=== PATIENT | male | born 1950 | race Caucasian/White ===

== ENCOUNTER 2017-04-19 05:20 | Emergency (ER) | payer MEDICARE ==
--- NOTE | 2017-04-19 05:32 | ED ---
Dizziness HPI - General Source: patient, family Mode of arrival: wheelchair Limitations: no limitations - History of Present Illness MD Complaint: dizziness Onset/Timin -: days(s) Timing: gradual onset Description: "room spinning" History of Same: No History of Trauma: No Severity: moderate Improves With: remaining still Worsens With: position Associated Symptoms: other (Nausea) <Mark Lee - Last Filed: 04/19/17 05:52> <Dale Peralta - Last Filed: 04/19/17 08:22> - General Stated Complaint: DIZZINESS Time Seen by Provider: 04/19/17 05:23 - History of Present Illness Initial Comments: This patient is a 66-year-old man who presents with 2 days of vertiginous symptoms. The patient states that it bothers him mainly when he attempts to sleep. He states that he usually sleeps lying on his stomach and when he tries to roll so that he is lying on his stomach he has an intense feeling of the room spinning. He states it also sometimes comes on when he goes from the prone position to standing. He has had a little bit of associated nausea. He denies other symptoms but on the review of systems notes that he has had approximately 2 weeks of cold like symptoms with little bit of congestion and a bit of a nonproductive cough. (Mark Lee) - Related Data Home Medications Medication Instructions Recorded Confirmed Ascorbic Acid [Vitamin C] 500 mg PO HS 04/19/17 04/19/17 Ergocalciferol [Vitamin D2] 50,000 unit PO DONG 04/19/17 04/19/17 Furosemide [Lasix] 40 mg PO HS 04/19/17 04/19/17 Latanoprost [Xalatan 0.005%] 1 drop BOTH EYES HS 04/19/17 04/19/17 Lisinopril 40 mg PO HS 04/19/17 04/19/17 Losartan Potassium 100 mg PO HS 04/19/17 04/19/17 Omeprazole [PriLOSEC] 20 mg PO AC-BID 04/19/17 04/19/17 Simvastatin [Zocor] 40 mg PO HS 04/19/17 04/19/17 Vitamin E 100 unit PO HS 04/19/17 04/19/17 hydrALAZINE HCL [Apresoline] 100 mg PO TID 04/19/17 04/19/17 Previous Rx's Medication Instructions Recorded Meclizine [Antivert] 25 mg PO TID PRN #30 tab 04/19/17 Allergies Allergy/AdvReac Type Severity Reaction Status Date / Time No Known Allergies Allergy Verified 04/19/17 08:16 Review of Systems ROS Other: All systems not noted in ROS Statement are negative. Constitutional: Denies: fever, chills Eyes: Denies: vision change ENT: Reports: congestion. Denies: ear pain, hearing loss Respiratory: Reports: cough. Denies: dyspnea, wheezes Cardiovascular: Denies: chest pain, palpitations, orthopnea, edema, syncope Gastrointestinal: Reports: nausea. Denies: abdominal pain, vomiting Musculoskeletal: Denies: back pain Skin: Denies: rash Neurological: Reports: vertigo. Denies: headache, weakness, numbness, paresthesias, confusion <JesusMark - Last Filed: 04/19/17 05:52> ROS Other: All systems not noted in ROS Statement are negative. <Dale Peralta - Last Filed: 04/19/17 08:22> ROS Statement: Those systems with pertinent positive or pertinent negative responses have been documented in the HPI. Past Medical History Past Medical History: Heart Failure, GERD/Reflux, Hypertension History of Any Multi-Drug Resistant Organisms: None Reported Past Surgical History: No Surgical Hx Reported, Tonsillectomy Past Psychological History: No Psychological Hx Reported Smoking Status: Former smoker Past Alcohol Use History: None Reported <JesusMark - Last Filed: 04/19/17 05:52> General Exam Limitations: no limitations General appearance: alert, in no apparent distress, obese Head exam: Present: atraumatic, normocephalic Eye exam: Present: normal appearance, PERRL, EOMI, nystagmus. Absent: scleral icterus, conjunctival injection ENT exam: Present: normal oropharynx, TM's normal bilaterally Neck exam: Present: normal inspection, full ROM Respiratory exam: Present: normal lung sounds bilaterally. Absent: respiratory distress, wheezes, rales, rhonchi Cardiovascular Exam: Present: regular rate, normal rhythm, normal heart sounds. Absent: systolic murmur, diastolic murmur, rubs, gallop GI/Abdominal exam: Present: soft. Absent: distended, tenderness, guarding, rebound Extremities exam: Present: normal inspection, normal capillary refill. Absent: pedal edema, calf tenderness Neurological exam: Present: alert, CN II-XII intact. Absent: motor sensory deficit Skin exam: Present: warm, dry, intact, normal color. Absent: rash <JesusMark - Last Filed: 04/19/17 05:52> Vital Signs 04/19/17 04/19/17 05:27 06:52 Temperature 98.3 F 98.1 F Pulse Rate 70 67 Respiratory 18 20 Rate Blood Pressure 175/85 160/52 O2 Sat by Pulse 97 96 Oximetry EKG Findings - EKG Results: EKG: interpreted by ERMD, normal axis, normal ST/T EKG shows: atrial fibrillation (Rate approximate 73 bpm) - CA, Pacemaker, Normal: Myocardial infarction: septal CA (old age or indeterminate) (There are Q waves in lead V2 that may be consistent with possible old septal infarct) <Mark Lee - Last Filed: 04/19/17 05:52> Medical Decision Making <Mark Lee - Last Filed: 04/19/17 05:52> - Lab Data Result diagrams: 04/19/17 05:38 04/19/17 05:38 <Dale Peralta - Last Filed: 04/19/17 08:22> - Medical Decision Making 66 yo male signed out from previous physician awaiting normal saline bolus. Patient had complaints consistent with vertigo, he did complain of some cough and cold symptoms over the preceding week. On exam patient is well-appearing, no ataxia no focal neurological findings. Patient is reevaluated after IV hydration and meclizine. He is feeling better. He is eager for discharge. He will follow-up with his primary care physician and return with any worsening or changing symptoms. (Dale Peralta) - Lab Data Lab Results 04/19/17 04/19/17 04/19/17 Range/Units 05:38 05:38 05:38 WBC 5.0 (3.8-10.6) k/uL RBC 4.92 (4.30-5.90) m/uL Hgb 14.3 (13.0-17.5) gm/dL Hct 44.5 (39.0-53.0) % MCV 90.3 (80.0-100.0) fL MCH 29.1 (25.0-35.0) pg MCHC 32.2 (31.0-37.0) g/dL RDW 13.0 (11.5-15.5) % Plt Count 169 (150-450) k/uL Neutrophils % 61 % Lymphocytes % 25 % Monocytes % 8 % Eosinophils % 3 % Basophils % 1 % Neutrophils # 3.0 (1.3-7.7) k/uL Lymphocytes # 1.3 (1.0-4.8) k/uL Monocytes # 0.4 (0-1.0) k/uL Eosinophils # 0.2 (0-0.7) k/uL Basophils # 0.0 (0-0.2) k/uL Sodium 139 (137-145) mmol/L Potassium 4.3 (3.5-5.1) mmol/L Chloride 100 (98-107) mmol/L Carbon Dioxide 26 (22-30) mmol/L Anion Gap 13 mmol/L BUN 21 H (9-20) mg/dL Creatinine 1.14 (0.66-1.25) mg/dL Est GFR (MDRD) Af Amer >60 (>60 ml/min/1.73 sqM) Est GFR (MDRD) Non-Af >60 (>60 ml/min/1.73 sqM) Glucose 153 H (74-99) mg/dL Calcium 9.2 (8.4-10.2) mg/dL Total Bilirubin 0.5 (0.2-1.3) mg/dL AST 28 (17-59) U/L ALT 34 (21-72) U/L Alkaline Phosphatase 68 (38-126) U/L Troponin I <0.012 (0.000-0.034) ng/mL Total Protein 6.8 (6.3-8.2) g/dL Albumin 3.9 (3.5-5.0) g/dL Disposition <Mark Lee - Last Filed: 04/19/17 05:52> Time of Disposition: 08:20 <Dale Peralta - Last Filed: 04/19/17 08:22> Clinical Impression: Dehydration, Vertigo Disposition: HOME SELF-CARE Condition: Good Instructions: Dizziness (ED) Prescriptions: Meclizine [Antivert] 25 mg PO TID PRN #30 tab PRN Reason: Vertigo Referrals: Gregg Parmar MD [Primary Care Provider] - 1-2 days
[2017-04-19] MEDS ORDERED: MECLIZINE 12.5 MG TAB PO STA (05:51)
[2017-04-19 06:11] LABS: Basophils % (A) 1 %; Eosinophils # (A) 0.2 k/uL (0-0.7); Eosinophils % (A) 3 %; HCT 44.5 % (39.0-53.0); HGB 14.3 gm/dL (13.0-17.5); Lymphocytes # (A) 1.3 k/uL (1.0-4.8); Lymphocytes % (A) 25 %; MCH 29.1 pg (25.0-35.0); MCHC 32.2 g/dL (31.0-37.0); MCV 90.3 fL (80.0-100.0); Mean Platelet Volume 8.5; Monocytes # (A) 0.4 k/uL (0-1.0); Monocytes % (A) 8 %; Neutrophils % (A) 61 %; Platelet Count 169 k/uL (150-450); RBC 4.92 m/uL (4.30-5.90)
[2017-04-19 06:22] LABS: ALT 34 U/L (21-72); AST 28 U/L (17-59); Albumin 3.9 g/dL (3.5-5.0); Alkaline Phosphatase 68 U/L (38-126); Anion Gap 13 mmol/L; Blood Urea Nitrogen 21 mg/dL (9-20); Calcium 9.2 mg/dL (8.4-10.2); Carbon Dioxide 26 mmol/L (22-30); Chloride 100 mmol/L (98-107); Glucose 153 mg/dL (74-99); Potassium 4.3 mmol/L (3.5-5.1); Sodium 139 mmol/L (137-145); Total Bilirubin 0.5 mg/dL (0.2-1.3); Total Protein 6.8 g/dL (6.3-8.2)
--- NOTE | 2017-04-19 06:41 | CT ---
EXAM: CT Head Without Intravenous Contrast CLINICAL HISTORY: ITS.REASON CT Reason: Pain TECHNIQUE: Axial computed tomography images of the head/brain without intravenous contrast. DLP is 1090.4 mGy-cm. This CT exam was performed using one or more of the following dose reduction techniques: automated exposure control, adjustment of the mA and/or kV according to patient size, and/or use of iterative reconstruction technique. COMPARISON: None. FINDINGS: Brain: Mild patchy foci of low attenuation in the supratentorial white matter. No evidence of acute intracranial hemorrhage. No mass effect or herniation. Ventricles: Unremarkable. No ventriculomegaly. Bones/joints: No acute fracture. Soft tissues: Unremarkable. Vasculature: Calcification of the distal internal carotid arteries. Sinuses: Unremarkable as visualized. Mastoid air cells: Unremarkable as visualized. Other findings: Mild mucosal thickening within the maxillary antrums. IMPRESSION: No acute findings.
[2017-04-19] MEDS ORDERED: SODIUM CHLORIDE 0.9% 1,000 ML IV ONE (06:59)
[2017-04-19 08:42] VITALS: BP 145/82; PULSE 72; RESP 18; TEMP 97.8
== END 2017-04-19 08:40 | disposition home or self-care (01) ==
LOC: EC 05:20
DX: E86.0 Dehydration (principal); R11.0 Nausea; I11.0 Hypertensive heart disease with heart failure; I50.9 Heart failure, unspecified; K21.9 Gastro-esophageal reflux disease without esophagitis; Z87.891 Personal history of nicotine dependence; Z79.899 Other long term (current) drug therapy
CPT/HCPCS: 36415; 70450; 80053; 84484; 85025; 93005; 96360; 99284

== ENCOUNTER 2017-08-06 14:36 | Emergency (ER) | payer MEDICARE ==
[2017-08-06] MEDS ORDERED: SODIUM CHLORIDE 0.9% 1,000 ML IV STA (15:21)
--- NOTE | 2017-08-06 15:45 | XR ---
EXAMINATION TYPE: XR chest 2V DATE OF EXAM: 08/06/2017 COMPARISON: NONE TECHNIQUE: PA and lateral views submitted. HISTORY: Shortness of breath FINDINGS: The lungs are clear and there is no pneumothorax, pleural effusion, or focal pneumonia. Biapical pl eural thickening. The heart is enlarged. Hypertrophic and degenerative changes spine. IMPRESSION: 1. No acute process.
[2017-08-06 16:05] LABS: Basophils # (A) 0.1 k/uL (0-0.2); Basophils % (A) 1 %; Eosinophils # (A) 0.1 k/uL (0-0.7); Eosinophils % (A) 1 %; HCT 44.6 % (39.0-53.0); HGB 14.5 gm/dL (13.0-17.5); Lymphocytes # (A) 1.5 k/uL (1.0-4.8); Lymphocytes % (A) 21 %; MCH 28.8 pg (25.0-35.0); MCHC 32.6 g/dL (31.0-37.0); MCV 88.6 fL (80.0-100.0); Mean Platelet Volume 8.4; Monocytes # (A) 0.5 k/uL (0-1.0); Monocytes % (A) 7 %; Neutrophils # (A) 4.7 k/uL (1.3-7.7); Neutrophils % (A) 67 %; Platelet Count 200 k/uL (150-450); RBC 5.04 m/uL (4.30-5.90); RDW 13.5 % (11.5-15.5); WBC 7.1 k/uL (3.8-10.6)
[2017-08-06 16:10] VITALS: RESP 18
[2017-08-06 16:11] LABS: INR 1.2 (<1.2); Partial Thromboplastin Time 26.2 sec (22.0-30.0); Prothrombin Time 11.4 sec (9.0-12.0)
[2017-08-06 16:19] LABS: Albumin 4.4 g/dL (3.5-5.0); Calcium 9.7 mg/dL (8.4-10.2); Potassium 4.8 mmol/L (3.5-5.1); Total Bilirubin 0.6 mg/dL (0.2-1.3); Total Protein 7.3 g/dL (6.3-8.2)
[2017-08-06 16:22] LABS: Creatine Kinase 158 U/L (55-170)
[2017-08-06 16:35] LABS: Creatine Kinase MB 1.2 ng/mL (0.0-2.4); Troponin I <0.012 ng/mL (0.000-0.034)
--- NOTE | 2017-08-06 17:28 | CT ---
EXAMINATION TYPE: CT angio chest DATE OF EXAM: 08/06/2017 5:19 PM COMPARISON: NONE HISTORY: Mid chest pain for [address] DLP: 1130.3 mGycm Automated exposure control for dose reduction was used. CONTRAST: CTA scan of the thorax is performed with IV Contrast, patient injected with 100 mL of Isovue 370, pul monary embolism protocol. . FINDINGS: LUNGS: The lungs are grossly clear, there is no concerning parenchymal mass or nodule identified. T here is no pleural effusion or pneumothorax seen. The tracheobronchial tree is patent. Interlobular septal thickening involving the lung bases is suggestive of chronic interstitial lung disease and the re is evidence of basilar bronchiectasis. MEDIASTINUM: There is satisfactory enhancement of the pulmonary artery and its branches, there is no CT evidence for pulmonary embolism. There are no greater than 1 cm hilar or mediastinal lymph nodes. Small pericardial effusion is noted. Coronary artery calcification noted. OTHER: Hypertrophic and degenerative change spine noted. There is a 5.3 cm right adrenal mass for [facility] MRI suggested. IMPRESSION: 1. No diagnostic evidence of pulmonary embolism 2. There is a 5.6 cm right adrenal mass which MRI is suggested. There may be fat attenuation which co uld be secondary to a myelo lipoma or adrenal adenoma. Only partially imaged MRI is recommended. 3. Coronary artery calcification and small pericardial effusion. 4. 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
[2017-08-06 17:35] VITALS: TEMP 98
[2017-08-06 19:02] VITALS: BP 156/70; PULSE 90
--- NOTE | 2017-08-06 19:14 | ED ---
SOB HPI - General Chief Complaint: Shortness of Breath Stated Complaint: Poss Blood Clot Time Seen by Provider: 08/06/17 15:16 Source: patient, family Mode of arrival: wheelchair Limitations: no limitations - History of Present Illness Initial Comments: 66 years old male sent in by Dr. Parmar with a shortness of breath Dr. Parmar did a blood work on him d-dimer was quite elevated and the patient is complaining about shortness of breath with a bare minimal exertion. He denies any chest pain eyes mostly dyspnea is concerned about no fever no chills. No abdominal pain no frequency urgency dysuria no symptoms of TIA or CVA - Related Data Home Medications Medication Instructions Recorded Confirmed Ascorbic Acid [Vitamin C] 500 mg PO HS 04/19/17 08/06/17 Ergocalciferol [Vitamin D2] 50,000 unit PO DONG 04/19/17 08/06/17 Furosemide [Lasix] 40 mg PO HS 04/19/17 08/06/17 Latanoprost [Xalatan 0.005%] 1 drop BOTH EYES HS 04/19/17 08/06/17 Lisinopril 40 mg PO HS 04/19/17 08/06/17 Losartan Potassium 100 mg PO HS 04/19/17 08/06/17 Omeprazole [PriLOSEC] 20 mg PO HS 04/19/17 08/06/17 Simvastatin [Zocor] 40 mg PO HS 04/19/17 08/06/17 Vitamin E 100 unit PO HS 04/19/17 08/06/17 hydrALAZINE HCL [Apresoline] 100 mg PO TID 04/19/17 08/06/17 Diltiazem HCl 120 mg PO TID 08/06/17 08/06/17 Allergies Allergy/AdvReac Type Severity Reaction Status Date / Time No Known Allergies Allergy Verified 08/06/17 17:40 Review of Systems ROS Statement: Those systems with pertinent positive or pertinent negative responses have been documented in the HPI. ROS Other: All systems not noted in ROS Statement are negative. Past Medical History Past Medical History: Heart Failure, GERD/Reflux, Hypertension History of Any Multi-Drug Resistant Organisms: None Reported Past Surgical History: Tonsillectomy Past Psychological History: No Psychological Hx Reported Smoking Status: Former smoker Past Alcohol Use History: None Reported Past Drug Use History: None Reported General Exam - General Exam Comments Initial Comments: General: The patient is awake and alert, in no distress, and does not appear acutely ill. Skin: Skin is warm and dry and no rashes or lesions are noted. Eye: Pupils are equal, round and reactive to light, extra-ocular movements are intact; there is normal conjunctiva bilaterally. Ears, nose, mouth and throat: There are moist mucous membranes and no oral lesions. Neck: The neck is supple, there is no tenderness or JVD. Cardiovascular: There is a regular rate and rhythm. No murmur, rub or gallop is appreciated. Respiratory: To auscultation bilateral, crease breath sounds in general no crackles noticed rales rhonchi's Gastrointestinal: Soft, non-distended, non-tender abdomen without masses or organomegaly noted. There is no rebound or guarding present. Bowel sounds are unremarkable. Back: There is no tenderness to palpation in the midline. There is no obvious deformity. Musculoskeletal: Normal ROM, no tenderness, There is no pedal edema. There is no calf tenderness or swelling. No cords were appreciated. Neurological: CN II-XII intact, Cranial nerves III through XII are intact. There are no obvious motor or sensory deficits. Coordination appears grossly intact. Speech is normal. Psychiatric: Cooperative, appropriate mood & affect, normal judgment. Limitations: no limitations Course Vital Signs 08/06/17 08/06/17 08/06/17 14:58 16:18 17:21 Temperature 97.8 F Pulse Rate 92 65 69 Respiratory 18 18 18 Rate Blood Pressure 170/95 115/65 115/69 O2 Sat by Pulse 95 95 98 Oximetry 08/06/17 08/06/17 17:34 18:50 Temperature 98 F Pulse Rate 75 90 Respiratory 18 18 Rate Blood Pressure 115/68 156/70 O2 Sat by Pulse 93 L 97 Oximetry Upon reassessment noticed CBC, INR, compress metabolic panel, troponin are normal CT angiogram was unremarkable did notice a tree no mass which would need a further follow-up with the MRI. Considering his dyspnea with a minimal exertion I advised that we monitored him in the hospital consult cardiology for possible stress test but the patient prefers to do that as outpatient. He is advised to follow with the cardiology associates and Tuesday morning as well as Dr. Parmar so outpatient MRI if his adrenal mass could be arranged Medical Decision Making - Lab Data Result diagrams: 08/06/17 15:26 06/09/18 15:26 Lab Results 08/06/17 08/06/17 08/06/17 Range/Units 15:26 15:26 15:26 WBC 7.1 (3.8-10.6) k/uL RBC 5.04 (4.30-5.90) m/uL Hgb 14.5 (13.0-17.5) gm/dL Hct 44.6 (39.0-53.0) % MCV 88.6 (80.0-100.0) fL MCH 28.8 (25.0-35.0) pg MCHC 32.6 (31.0-37.0) g/dL RDW 13.5 (11.5-15.5) % Plt Count 200 (150-450) k/uL Neutrophils % 67 % Lymphocytes % 21 % Monocytes % 7 % Eosinophils % 1 % Basophils % 1 % Neutrophils # 4.7 (1.3-7.7) k/uL Lymphocytes # 1.5 (1.0-4.8) k/uL Monocytes # 0.5 (0-1.0) k/uL Eosinophils # 0.1 (0-0.7) k/uL Basophils # 0.1 (0-0.2) k/uL PT (9.0-12.0) sec INR (<1.2) APTT (22.0-30.0) sec Sodium 145 (137-145) mmol/L Potassium 4.8 (3.5-5.1) mmol/L Chloride 101 (98-107) mmol/L Carbon Dioxide 28 (22-30) mmol/L Anion Gap 16 mmol/L BUN 14 (9-20) mg/dL Creatinine 1.10 (0.66-1.25) mg/dL Est GFR (CKD-EPI)AfAm 81 (>60 ml/min/1.73 sqM) Est GFR (CKD-EPI)NonAf 70 (>60 ml/min/1.73 sqM) Glucose 99 (74-99) mg/dL Calcium 9.7 (8.4-10.2) mg/dL Total Bilirubin 0.6 (0.2-1.3) mg/dL AST 33 (17-59) U/L ALT 40 (21-72) U/L Alkaline Phosphatase 66 (38-126) U/L Total Creatine Kinase 158 (55-170) U/L CK-MB (CK-2) 1.2 (0.0-2.4) ng/mL CK-MB (CK-2) Rel Index 0.8 Troponin I <0.012 (0.000-0.034) ng/mL Total Protein 7.3 (6.3-8.2) g/dL Albumin 4.4 (3.5-5.0) g/dL 08/06/17 Range/Units 15:26 WBC (3.8-10.6) k/uL RBC (4.30-5.90) m/uL Hgb (13.0-17.5) gm/dL Hct (39.0-53.0) % MCV (80.0-100.0) fL MCH (25.0-35.0) pg MCHC (31.0-37.0) g/dL RDW (11.5-15.5) % Plt Count (150-450) k/uL Neutrophils % % Lymphocytes % % Monocytes % % Eosinophils % % Basophils % % Neutrophils # (1.3-7.7) k/uL Lymphocytes # (1.0-4.8) k/uL Monocytes # (0-1.0) k/uL Eosinophils # (0-0.7) k/uL Basophils # (0-0.2) k/uL PT 11.4 (9.0-12.0) sec INR 1.2 H (<1.2) APTT 26.2 (22.0-30.0) sec Sodium (137-145) mmol/L Potassium (3.5-5.1) mmol/L Chloride (98-107) mmol/L Carbon Dioxide (22-30) mmol/L Anion Gap mmol/L BUN (9-20) mg/dL Creatinine (0.66-1.25) mg/dL Est GFR (CKD-EPI)AfAm (>60 ml/min/1.73 sqM) Est GFR (CKD-EPI)NonAf (>60 ml/min/1.73 sqM) Glucose (74-99) mg/dL Calcium (8.4-10.2) mg/dL Total Bilirubin (0.2-1.3) mg/dL AST (17-59) U/L ALT (21-72) U/L Alkaline Phosphatase (38-126) U/L Total Creatine Kinase (55-170) U/L CK-MB (CK-2) (0.0-2.4) ng/mL CK-MB (CK-2) Rel Index Troponin I (0.000-0.034) ng/mL Total Protein (6.3-8.2) g/dL Albumin (3.5-5.0) g/dL Disposition Clinical Impression: Adrenal mass, Dyspnea Disposition: HOME SELF-CARE Condition: Good Instructions: Dyspnea (ED) Is patient prescribed a controlled substance at d/c from ED?: No Referrals: Gregg Parmar MD [Primary Care Provider] - 1-2 days Gonsalo Mcdonald MD [STAFF PHYSICIAN] - 1-2 days
== END 2017-08-06 19:25 | disposition home or self-care (01) ==
LOC: EC 14:36
DX: E27.8 Other specified disorders of adrenal gland (principal); R06.02 Shortness of breath; I48.91 Unspecified atrial fibrillation; R79.1 Abnormal coagulation profile; I11.0 Hypertensive heart disease with heart failure; I50.9 Heart failure, unspecified; K21.9 Gastro-esophageal reflux disease without esophagitis; Z87.891 Personal history of nicotine dependence; Z79.899 Other long term (current) drug therapy
CPT/HCPCS: 99285; 96360; 96361 ×2; 36415; 93005; 80053; 82550; 82553; 84484; 85025; 85610; 85730; 71046; 71275; Q9967

== ENCOUNTER → 2017-08-06 | Outpatient (CLI) | payer MEDICARE ==
[2017-08-06 12:52] LABS: Basophils % (A) 1 %; Eosinophils # (A) 0.1 k/uL (0-0.7); Eosinophils % (A) 1 %; HCT 44.4 % (39.0-53.0); HGB 14.8 gm/dL (13.0-17.5); Lymphocytes # (A) 1.4 k/uL (1.0-4.8); Lymphocytes % (A) 21 %; MCH 30.1 pg (25.0-35.0); MCHC 33.4 g/dL (31.0-37.0); Mean Platelet Volume 8.2; Monocytes # (A) 0.4 k/uL (0-1.0); Monocytes % (A) 6 %; Neutrophils # (A) 4.5 k/uL (1.3-7.7); Neutrophils % (A) 68 %; Platelet Count 185 k/uL (150-450); RBC 4.93 m/uL (4.30-5.90); RDW 13.7 % (11.5-15.5); WBC 6.6 k/uL (3.8-10.6)
[2017-08-06 13:01] LABS: Albumin 4.6 g/dL (3.5-5.0); Calcium 9.5 mg/dL (8.4-10.2); Potassium 4.5 mmol/L (3.5-5.1); Total Bilirubin 0.8 mg/dL (0.2-1.3); Total Protein 7.5 g/dL (6.3-8.2)
== END | disposition home or self-care (01) ==
LOC: LABWHC1 11:53
PROVIDERS: ATTEND Family Medicine
DX: R06.02 Shortness of breath (principal)
CPT/HCPCS: 36415; 80053; 83880; 84484; 85025; 85379

== ENCOUNTER → 2017-08-25 | Outpatient (CLI) | payer MEDICARE ==
--- NOTE | 2017-08-25 14:09 | EST ---
EXERCISE STRESS DATE OF SERVICE: 08/25/2017 AGE: 66 SEX: M HT: 6 feet 6 inches WT: 327 PROTOCOL: Stress Echo STAGE: I DURATION OF EXERCISE: 4:45 HEART RATE REST: 67 BLOOD PRESSURE REST: 160/81 MAXIMUM HEART RATE ACHIEVED: 137 MAXIMUM BLOOD PRESSURE: 188/90 85% MPHR: 131 100% MPHR: 154 METS: 5.0 INDICATIONS: Shortness of breath. CLINICAL INFORMATION: Baseline EKG revealed atrial fibrillation with nonspecific ST-T changes. Rate was well controlled. Patient walked for 4 minute 45 seconds and achieved a maximal heart rate of 138 beats per minute which is more than 85% of predicted maximal. He developed fatigue and shortness of breath but did not have any angina or arrhythmia. EKG remained inconclusive. By EKG criteria, this is an inconclusive stress test because of resting EKG changes. Fair exercise capacity was noted. Baseline echo images revealed normal wall motion and wall thickening of all segments. At peak exercise there was good augmentation of left and wall motion and wall thickening of all segments suggesting that there is no evidence of stress-induced ischemia on this study. IMPRESSION: 1. Limited exercise capacity with a inconclusive stress test by EKG criteria. 2. Normal stress echocardiogram. MMODL / IJN: [id number] /
== END | disposition home or self-care (01) ==
LOC: RADNMMAIN 08:57
PROVIDERS: ATTEND Family Medicine
DX: I48.91 Unspecified atrial fibrillation (principal); R06.02 Shortness of breath
CPT/HCPCS: C8930; Q9950; 93351

== ENCOUNTER → 2017-09-02 | Outpatient (CLI) | payer MEDICARE ==
--- NOTE | 2017-09-04 13:09 | CT ---
EXAMINATION TYPE: CT abdomen pelvis w con DATE OF EXAM: 09/02/2017 COMPARISON: CT thorax dated 08/06/2017 HISTORY: Generalized pain with nausea and diarrhea. Adrenal gland mass. CT DLP: 3455.2 mGycm Automated exposure control for dose reduction was used. TECHNIQUE: Helical acquisition of images was performed from the lung bases through the pelvis. CONTRAST: Performed with Oral Contrast and with IV Contrast, patient injected with 100 mL of Isovue 300. FINDINGS: LUNG BASES: Minimal bibasilar subsegmental dependent atelectasis is noted. LIVER/GB: No significant abnormality is appreciated. PANCREAS: No significant abnormality is seen. Ductal dilatation. SPLEEN: No significant abnormality is seen. No splenomegaly. 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 There is some internal higher density that may represent previous hemorrhage, however no findings compatible w ith active hemorrhage are seen on today's examination. No calcifications are associated with this les ion. Therefore fat-containing adrenal cortical carcinoma is considered much less likely. Left adrenal gland is unremarkable. KIDNEYS: Kidneys enhance symmetrically without hydronephrosis. Kidneys also excrete symmetrically. FREE AIR: No free air is visualized. ADENOPATHY: Greater than 1 cm short axis lymph node within the abdomen or pelvis. REPRODUCTIVE ORGANS: The prostate gland is heterogenous containing central zone calcifications. No pr ostate gland enlargement. URINARY BLADDER: No significant abnormality is seen. PELVIC ADENOPATHY: None visualized. OSSEOUS STRUCTURES: Asymmetric left sacroiliac joint sclerosis is likely degenerative. Mild degenera tive changes of the visualized spine are also seen. BOWEL: Is nondilated. Few scattered sigmoid colonic diverticula are seen without pericolonic fat str anding. OTHER: Mild atherosclerosis is seen of the abdominal aorta and its branches. 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 NO ACTIVE HEMORRHAGE IS SEEN.
== END | disposition home or self-care (01) ==
LOC: RADCTMAIN 16:16
PROVIDERS: ATTEND Family Medicine
DX: R10.84 Generalized abdominal pain (principal); R11.0 Nausea
CPT/HCPCS: 82565; 84520; 74177; 36415; Q9967

== ENCOUNTER → 2018-01-09 | Outpatient (CLI) | payer MEDICARE ==
--- NOTE | 2018-01-10 07:57 | US ---
EXAMINATION TYPE: US kidneys/renal and bladder DATE OF EXAM: 01/09/2018 COMPARISON: CT scan 09/02/2017 CLINICAL HISTORY: N18.[address] scan showed adrenal mass. EXAM MEASUREMENTS: Right Kidney: 11.6 x 5.7 x 6.0 cm Left Kidney: 12.1 x 5.6 x 5.7 cm Right Kidney: Prominent column of Benny. Possible adrenal mass seen; echogenic and nonvascular= 5.3 x 5.6 x 4.2 cm Left Kidney: wnl Bladder: distended, wnl as visualized Bilateral Jets not seen IMPRESSION: Right adrenal mass compatible with previous CT finding
== END | disposition home or self-care (01) ==
LOC: RADUSWWP 15:59
PROVIDERS: ATTEND Family Medicine
DX: E27.9 Disorder of adrenal gland, unspecified (principal); N18.9 Chronic kidney disease, unspecified
CPT/HCPCS: 76770

== ENCOUNTER → 2019-05-14 | Outpatient (CLI) | payer MEDICARE | END | disposition home or self-care (01) | DX: R35.0 Frequency of micturition (principal) | CPT/HCPCS: 76770 ==